=== PATIENT | female | born 1950 | race African-American/Black ===

== ENCOUNTER 2017-03-18 18:01 | Emergency (ER) | payer MEDICARE, MEDICAID ==
[~2017-03-18] VITALS: Ht 162.6 cm; Wt 78.0 kg
[2017-03-18] MEDS ORDERED: ATOR20TA65 PO (18:14)
[2017-03-18] MEDS ORDERED: PROP80CA2 PO (18:14)
[2017-03-18] MEDS ORDERED: TRAM-350 PO (18:14)
[2017-03-18] MEDS ORDERED: OLME20TA14 PO (18:14)
[2017-03-18] MEDS ORDERED: GABA-529 PO (18:14)
[2017-03-18] MEDS ORDERED: ACETAMINOPHEN 325MG TABLET PO ONE (18:45)
[2017-03-18] MEDS ORDERED: TETANUS, DIPHTHERIA, PERTUSSIS VAC/PF 0.5ML (>7YR OLD) IM ONE (18:45)
[2017-03-18] MEDS ORDERED: BACITRACIN ZINC OINT UDPKT TOP ONE ×2 (18:45→20:15)
[2017-03-18] MEDS ORDERED: HYDROCODONE/ACETAMINOPHEN 5/325MG TABLET PO ONE (19:30)
[2017-03-18] MEDS ORDERED: MORPHINE SULFATE 10 MG/ML CPJ IM ONE (20:30)
[2017-03-19 00:04] VITALS: BP 167/68
== END 2017-03-19 00:12 | disposition home or self-care (01) ==
LOC: ER 19:41
DX: S00.81XA Abrasion of other part of head, initial encounter (principal); I10 Essential (primary) hypertension; E78.00 Pure hypercholesterolemia, unspecified; G35 Multiple sclerosis; G82.50 Quadriplegia, unspecified; W05.0XXA Fall from non-moving wheelchair, initial encounter; Y93.89 Activity, other specified; Y92.89 Other specified places as the place of occurrence of the external cause; Y99.8 Other external cause status
CPT/HCPCS: 70450; 72125; 72131; 73130; 90471; 90715; 96372; 99284; J2270

== ENCOUNTER 2022-12-12 09:38 | Inpatient (IN) | payer MEDICARE, MEDICAID ==
[~2022-12-12] VITALS: Ht 157.5 cm; Wt 80.4 kg
[~2022-12-12 09:38] MED LIST: ATOR20TA65 PO; GABA-529 PO; OLME20TA13 PO; PROP80CA2 PO; TRAM-350 PO
[2022-12-12] MEDS ORDERED: SODIUM CHLORIDE 0.9% 1000ML BAG (SEPSIS BOLUS) IV ONE (10:00)
[2022-12-12 10:13] LABS: HEMATOCRIT. 30.2 % (36.0-48.0); HEMOGLOBIN. 9.5 g/dL (12.0-16.0); MEAN CORPUSCULAR HEMOGLOBIN 24.9 pg (28.0-32.0); MEAN CORPUSCULAR VOLUME 79.4 fL (81.0-99.0); MEAN PLATELET VOLUME 6.2 fl (7.4-10.4); PLATELET 512 x1000/uL (130-400); RED CELL DISTRIBUTION WIDTH 15.9 % (11.6-14.6)
[2022-12-12 10:23] LABS: CHLORIDE 106 mEq/L (98-107)
[2022-12-12 10:30] LABS: CREATINE KINASE 132 IU/L (26-192)
[2022-12-12] MEDS ORDERED: AZITHROMYCIN 500MG/250ML 250 ML IV ONE (10:45)
[2022-12-12] MEDS ORDERED: CEFTRIAXONE 1 G PREMIX 50 ML IV ONE (10:45)
[2022-12-12 10:51] LABS: PLATELET ESTIMATE INCREASED
[2022-12-12 11:07] LABS: CLARITY URINE CLEAR (CLEAR); COLOR URINE YELLOW (YELLOW); KETONES URINE NEGATIVE (NEGATIVE); LEUKOCYTE ESTERASE URINE NEGATIVE (NEGATIVE); NITRITE URINE NEGATIVE (NEGATIVE); OCCULT BLOOD URINE NEGATIVE (NEGATIVE); PH URINE 5.5 (4.5-8.0); PROTEIN URINE TRACE (NEGATIVE); SPECIFIC GRAVITY URINE 1.009 (1.005-1.030)
[2022-12-12 13:44] LABS: INR 1.1; PROTHROMBIN TIME 11.7 sec (9.6-11.0)
[2022-12-12] MEDS ORDERED: DOCUSATE SODIUM 100MG CAPSULE PO PRN (13:45)
[2022-12-12] MEDS ORDERED: NA PHOS,M-B/NA PHOS,DI-BA ENEMA 118ML PR PRN (13:45)
[2022-12-12] MEDS ORDERED: AZITHROMYCIN 500 MG in DEXT 5% WATER 250 ML IV SCH (13:45)
[2022-12-12] MEDS ORDERED: ONDANSETRON HCL 4MG/2ML INJ IV PRN (13:45)
[2022-12-12] MEDS ORDERED: GUAIFENESIN 200MG/10ML SUGAR FREE UDC PO PRN (13:45)
[2022-12-12] MEDS ORDERED: ACETAMINOPHEN 325MG TABLET PO PRN ×2 (13:45)
[2022-12-12] MEDS ORDERED: CEFTRIAXONE 1 G PREMIX 50 ML IV SCH (13:45)
[2022-12-12] MEDS ORDERED: CLONIDINE 0.1MG TABLET PO PRN (13:45)
[2022-12-12] MEDS ORDERED: IPRATROPIUM/ALBUTEROL 0.5-3(2.5)MG/3ML NEB HHN PRN (13:45)
[2022-12-12] MEDS ORDERED: MAGNESIUM/ALUMINUM HYDROXIDE/SIMETHICONE 30ML UDC PO PRN (13:45)
[2022-12-12] MEDS: FERROUS SULFATE 325MG TABLET PO SCH (14:00)
[2022-12-12] MEDS: SODIUM CHLORIDE 0.9% 1,000 ML IV SCH (14:32)
[2022-12-12 14:43] LABS: T4 FREE 1.3 ng/dL (0.76-1.46)
[2022-12-12 15:03] LABS: FOLIC ACID (FOLATE) SERUM >20 ng/mL ng/mL (>5.38); VITAMIN B12 SERUM >2000 pg/mL pg/mL (211-911)
[2022-12-12] MEDS: ENOXAPARIN 40MG/0.4ML SYR SUBCUT SCH (15:46)
[2022-12-12] MEDS ORDERED: GABAPENTIN 300MG CAPSULE PO NR (16:00)
[2022-12-12 17:45] LABS: TOTAL IRON BINDING CAPACITY 326 ug/dL (250-450)
[2022-12-12] MEDS: CLOPIDOGREL 75MG TABLET PO SCH (18:50)
[2022-12-12] MEDS: FAMOTIDINE 20MG TABLET PO SCH (21:00)
[2022-12-12 22:00] VITALS: BP 103/41
[2022-12-12] MEDS: HYDROCODONE/ACETAMINOPHEN 5/325MG TABLET PO PRN (23:10)
[2022-12-12 23:37] LABS: T4 FREE 1.31 ng/dL (0.76-1.46)
[2022-12-13] VITALS: BP 153/86
[2022-12-13] MEDS: SODIUM CHLORIDE 0.9% 1,000 ML IV SCH ×2 (03:36→17:03)
[2022-12-13 04:00] VITALS: BP 106/50
[2022-12-13] MEDS ORDERED: TIZA2CAP PO (06:42)
[2022-12-13] MEDS ORDERED: FERR-71 PO (06:42)
[2022-12-13] MEDS ORDERED: DEXTROSE 50% WATER 50ML SYRINGE IV PRN (07:30)
[2022-12-13] MEDS ORDERED: IPRATROPIUM BROMIDE (0.02%) 0.5MG/2.5ML NEB HHN PRN (07:30)
[2022-12-13] MEDS ORDERED: ALBUTEROL (0.083%) 2.5MG/3ML NEB HHN PRN (07:30)
[2022-12-13] MEDS ORDERED: NALOXONE HCL 0.4MG/ML VIAL IV PRN (07:45)
[2022-12-13 08:00] VITALS: BP 125/54
[2022-12-13] MEDS: INSULIN LISPRO 100 UNITS/ML SUBCUT SCH ×4 (08:10→20:20)
[2022-12-13] MEDS: BLOOD SUGAR DIAGNOSTIC STRIP TEST SCH ×4 (08:36→20:20)
[2022-12-13] MEDS ORDERED: AZITHROMYCIN 500MG in DEXTROSE 5% WATER 250ML IV SCH ×2 (10:00→11:00)
[2022-12-13] MEDS: FERROUS SULFATE 325MG TABLET PO SCH (10:08)
[2022-12-13] MEDS: CLOPIDOGREL 75MG TABLET PO SCH (10:08)
[2022-12-13] MEDS: ASPIRIN 81MG EC TABLET PO SCH (10:08)
[2022-12-13] MEDS: CEFTRIAXONE 1,000 MG in DEXTROSE 5% WATER 50 ML IV SCH (10:09)
[2022-12-13] MEDS ORDERED: TRAMADOL 50MG TABLET PO PRN (11:00)
[2022-12-13] MEDS ORDERED: CEFTRIAXONE 1,000 MG in DEXTROSE 5% WATER 50 ML IV SCH (11:00)
[2022-12-13 12:00] VITALS: BP 115/54
[2022-12-13] MEDS: ENOXAPARIN 40MG/0.4ML SYR SUBCUT SCH (14:46)
[2022-12-13 16:00] VITALS: BP 131/82
[2022-12-13 16:04] LABS: BASOPHILS % 0.4 % (0.0-2.0); EOSINOPHILS % 0.3 % (0.0-5.0); HEMATOCRIT. 25.4 % (36.0-48.0); HEMOGLOBIN. 7.9 g/dL (12.0-16.0); LYMPHOCYTES % 8.9 % (20.0-50.0); MEAN CORPUSCULAR HEMOGLOBIN 24.5 pg (28.0-32.0); MEAN CORPUSCULAR VOLUME 78.5 fL (81.0-99.0); MEAN PLATELET VOLUME 6.2 fl (7.4-10.4); MONOCYTES % 8.3 % (2.0-8.0); NEUTROPHILS % 82.1 % (40.0-76.0); PLATELET 467 x1000/uL (130-400); RED BLOOD CELL COUNT 3.23 mill/uL (4.2-5.4); RED CELL DISTRIBUTION WIDTH 15.7 % (11.6-14.6)
[2022-12-13 16:24] LABS: CHLORIDE 109 mEq/L (98-107)
[2022-12-13 20:00] VITALS: BP 126/32
[2022-12-13] MEDS: FAMOTIDINE 20MG TABLET PO SCH (20:53)
[2022-12-13] MEDS: HYDROCODONE/ACETAMINOPHEN 5/325MG TABLET PO PRN (23:43)
[2022-12-14] VITALS: BP 124/51
[2022-12-14] MEDS ORDERED: TRAMADOL 50MG TABLET PO PRN
[2022-12-14] MEDS: GABAPENTIN 300MG CAPSULE PO SCH ×2 (00:14→20:39)
[2022-12-14 04:00] VITALS: BP 105/54
[2022-12-14 06:34] LABS: BASOPHILS % 0.7 % (0.0-2.0); EOSINOPHILS % 1.5 % (0.0-5.0); HEMATOCRIT. 25.8 % (36.0-48.0); HEMOGLOBIN. 8.2 g/dL (12.0-16.0); LYMPHOCYTES % 19.5 % (20.0-50.0); MEAN CORPUSCULAR HEMOGLOBIN 25.2 pg (28.0-32.0); MEAN CORPUSCULAR VOLUME 78.8 fL (81.0-99.0); MEAN PLATELET VOLUME 6.7 fl (7.4-10.4); MONOCYTES % 9.2 % (2.0-8.0); NEUTROPHILS % 69.1 % (40.0-76.0); PLATELET 474 x1000/uL (130-400); RED BLOOD CELL COUNT 3.27 mill/uL (4.2-5.4); RED CELL DISTRIBUTION WIDTH 16.1 % (11.6-14.6)
[2022-12-14] MEDS: BLOOD SUGAR DIAGNOSTIC STRIP TEST SCH ×4 (06:45→20:40)
[2022-12-14 07:32] LABS: CHLORIDE 114 mEq/L (98-107)
[2022-12-14 08:00] VITALS: BP 126/57
[2022-12-14] MEDS: INSULIN LISPRO 100 UNITS/ML SUBCUT SCH ×4 (08:10→20:40)
[2022-12-14] MEDS: ASPIRIN 81MG EC TABLET PO SCH (08:52)
[2022-12-14] MEDS: CLOPIDOGREL 75MG TABLET PO SCH (08:52)
[2022-12-14] MEDS: CEFTRIAXONE 1,000 MG in DEXTROSE 5% WATER 50 ML IV SCH (08:52)
[2022-12-14] MEDS: FERROUS SULFATE 325MG TABLET PO SCH (08:52)
[2022-12-14] MEDS: SODIUM CHLORIDE 0.9% 1,000 ML IV SCH (08:53)
[2022-12-14] MEDS ORDERED: PIPERACILLIN/TAZOBACTAM 3.375 G in DEXTROSE 5% WATER 50 ML IV SCH (10:00)
[2022-12-14 12:00] VITALS: BP 134/65
[2022-12-14] MEDS: ENOXAPARIN 40MG/0.4ML SYR SUBCUT SCH (14:14)
[2022-12-14 16:00] VITALS: BP 142/63
[2022-12-14] MEDS ORDERED: LEVOFLOXACIN 500MG PREMIX 100 ML IV SCH (17:00)
[2022-12-14 20:00] VITALS: BP 133/62
[2022-12-14] MEDS: FAMOTIDINE 20MG TABLET PO SCH (20:39)
[2022-12-14] MEDS: TIZANIDINE HCL 2MG TABLET PO PRN (20:39)
[2022-12-15] VITALS: BP 127/62
[2022-12-15 04:00] VITALS: BP 147/68
[2022-12-15] MEDS: BLOOD SUGAR DIAGNOSTIC STRIP TEST SCH ×2 (05:51→12:40)
[2022-12-15] MEDS: INSULIN LISPRO 100 UNITS/ML SUBCUT SCH ×2 (05:51→13:10)
[2022-12-15 06:29] LABS: BASOPHILS % 0.8 % (0.0-2.0); EOSINOPHILS % 3.2 % (0.0-5.0); HEMATOCRIT. 24.1 % (36.0-48.0); HEMOGLOBIN. 7.6 g/dL (12.0-16.0); MEAN CORPUSCULAR HEMOGLOBIN 24.8 pg (28.0-32.0); MEAN CORPUSCULAR VOLUME 78.4 fL (81.0-99.0); MEAN PLATELET VOLUME 6.7 fl (7.4-10.4); MONOCYTES % 9.6 % (2.0-8.0); NEUTROPHILS % 57.4 % (40.0-76.0); PLATELET 455 x1000/uL (130-400); RED BLOOD CELL COUNT 3.07 mill/uL (4.2-5.4); RED CELL DISTRIBUTION WIDTH 15.8 % (11.6-14.6)
[2022-12-15 07:34] LABS: CHLORIDE 113 mEq/L (98-107)
[2022-12-15 07:47] LABS: PHOSPHORUS 2.7 mg/dL (2.5-4.9)
[2022-12-15 08:00] VITALS: BP 129/56
[2022-12-15] MEDS ORDERED: POTASSIUM CHLORIDE 20MEQ TABLET SR PO NR (08:00)
[2022-12-15] MEDS: CLOPIDOGREL 75MG TABLET PO SCH (08:42)
[2022-12-15] MEDS: FERROUS SULFATE 325MG TABLET PO SCH (08:42)
[2022-12-15] MEDS: ASPIRIN 81MG EC TABLET PO SCH (08:44)
[2022-12-15] MEDS: TIZANIDINE HCL 2MG TABLET PO PRN (09:24)
[2022-12-15 12:00] VITALS: BP 131/47
[2022-12-15] MEDS: ENOXAPARIN 40MG/0.4ML SYR SUBCUT SCH (14:59)
[2022-12-15 15:30] VITALS: BP 131/47
== END 2022-12-15 16:50 | disposition home health service (06) | DRG 871 ==
LOC: ER 09:45 → 7WST 11:51
PROVIDERS: ADMIT Internal Medicine; ATTEND Internal Medicine
DX: A41.51 Sepsis due to Escherichia coli [E. coli] (principal); I21.A1 Myocardial infarction type 2; I26.99 Other pulmonary embolism without acute cor pulmonale; E46 Unspecified protein-calorie malnutrition; G82.20 Paraplegia, unspecified; A41.50 Gram-negative sepsis, unspecified; D50.9 Iron deficiency anemia, unspecified; E78.00 Pure hypercholesterolemia, unspecified; I11.9 Hypertensive heart disease without heart failure; M48.00 Spinal stenosis, site unspecified; L89.90 Pressure ulcer of unspecified site, unspecified stage; G35 Multiple sclerosis; E11.42 Type 2 diabetes mellitus with diabetic polyneuropathy; Z20.822 Contact with and (suspected) exposure to COVID-19; M48.02 Spinal stenosis, cervical region; E78.5 Hyperlipidemia, unspecified; Z68.32 Body mass index [BMI] 32.0-32.9, adult; Z98.1 Arthrodesis status; Z79.899 Other long term (current) drug therapy; Z90.711 Acquired absence of uterus with remaining cervical stump; Z99.3 Dependence on wheelchair
CPT/HCPCS: 36415; 71045; 78580; 80048; 80053; 80061; 81003; 82550; 82607; 82728; 82746; 82962; 83036; 83540; 83550; 83605; 83735; 83880; 84100; 84145; 84439; 84443; 84484; 85025; 85379; 87077; 87186; 87426; 87804; 93005; 93306; 93970; 99285; A6261; C9803; J0456; J0696; J1650; J1815; J1956; J2543; J7030; J7060

== ENCOUNTER → 2023-02-19 | Day surgery (SDC) | payer MEDICARE, MEDICAID ==
[~2023-02-19] VITALS: Ht 158.8 cm; Wt 58.1 kg
[~2023-02-19] MED LIST changes: +BUPIVACAINE HCL/PF 0.5% (5MG/ML) 10ML ONE; +FENTANYL CITRATE/PF 50MCG/ML 2ML VIAL ONE; +FERR-71 PO; +HYDROMORPHONE HCL/PF 2MG/ML CPJ IV PRN; +LABETALOL 5MG/ML SYR 20 MG/4 ML SYRINGE IV PRN; +LIDOCAINE HCL 1% 30ML VIAL (10MG/ML) ONE; +MEPERIDINE HCL/PF 25MG/ML CPJ IV PRN; +MIDAZOLAM HCL 2 MG/2 ML VIAL ONE; +OMEP20CA14 PO; +ONDANSETRON HCL 4MG/2ML INJ IV PRN; +POLYMYXIN B SULFATE 500000 UNITS/VIAL ONE; +PROP60TA18 PO; +PROPOFOL 200MG/20ML VIAL IV ONE; +SKIN ADHESIVE 0.7 GM EA TOP ONE; +SODIUM CHLORIDE 0.9% 1,000 ML IV SCH; +TIZA2CAP PO; +VANCOMYCIN HCL 1 GM/VIAL ONE
== END | disposition home or self-care (01) ==
LOC: OR 07:28
PROVIDERS: ATTEND Surgery
DX: Z45.2 Encounter for adjustment and management of vascular access device (principal); L89.159 Pressure ulcer of sacral region, unspecified stage; I10 Essential (primary) hypertension; E78.00 Pure hypercholesterolemia, unspecified; E11.9 Type 2 diabetes mellitus without complications; D64.9 Anemia, unspecified; Z79.899 Other long term (current) drug therapy; Z98.890 Other specified postprocedural states
CPT/HCPCS: 15931; 36573; 71045; 82962; 88304; 93005; A4217; C1725; C1751; J2250; J2704; J3010; J3490; Z7610; J3370